=== PATIENT | female | born 1990 | race Caucasian/White ===

== ENCOUNTER 2016-08-17 03:22 | Emergency (ER) | payer OTHER ==
[~2016-08-17] VITALS: Ht 157.5 cm; Wt 59.0 kg
--- NOTE | 2016-08-17 03:45 | ED DYSPNEA/ASTHMA COMPLAINT ---
History of Present Illness General Chief Complaint: Dyspnea (COPD, CHF, Other) Stated Complaint: PER FRIEND,"SHE CANT BREATH" Source: patient, friend Exam Limitations: no limitations Vital Signs & Intake/Output Vital Signs & Intake/Output Vital Signs Date Time Temp Pulse Resp B/P Pulse O2 O2 Flow FiO2 Ox Delivery Rate 08/17 0624 96.8 73 18 119/73 96 Room Air 08/17 0403 100 Room Air 08/17 0358 97.3 75 18 123/79 97 Room Air Allergies Coded Allergies: Penicillins (08/17/16) amoxicillin (08/17/16) clavulanic acid (From AUGMENTIN) (08/17/16) Triage Nurses Notes Reviewed? yes HPI: Patient presents with dyspnea and substernal chest pressure. Patient states that the chest pressure started tonight while laying on the couch. Patient states that it felt like some was sitting on her chest. The symptoms are constant. There is no radiation. SHe rates it as a 6 out of 10. Patient is also been having intermittent stabbing pain to her bilateral flanks. There are no aggravating or mitigating factors. There is no radiation. The pain lasts a few seconds and then goes away. The pain is 10 out of 10. Patient is also been having shortness of breath. Patient states it feels like she just can't catch her breath. The symptoms have been constant for the past week. Patient states he got to the point that she had to quit smoking. Patient denies any cough. Patient states that she has been to an urgent care and the emergency department twice. Patient states feeling that helped was when she was given a short course of steroids but the steroids finished. There are no fevers or chills. There is no orthopnea. Positive dyspnea on exertion. Past History Travel History Traveled to [place] past 21 day No Medical History Any Pertinent Medical History? see below for history Other Medical Hx: Dermatomyositis Surgical History Surgical History: non-contributory Psychosocial History Tobacco Use: Quit <30 days ago ETOH Use: occasional use Illicit Drug Use: denies illicit drug use Family History Hx Contributory? No Review of Systems Review of Systems Constitutional: Reports: no symptoms. EENTM: Reports: no symptoms. Respiratory: Reports: see HPI, short of breath. Cardiovascular: Reports: see HPI, chest pain. GI: Reports: no symptoms. Genitourinary: Reports: no symptoms. Musculoskeletal: Reports: no symptoms. Skin: Reports: no symptoms. Neurological/Psychological: Reports: no symptoms. Hematologic/Endocrine: Reports: no symptoms. Immunologic/Allergic: Reports: no symptoms. All Other Systems: Reviewed and Negative Physical Exam Physical Exam General Appearance: well developed/nourished, alert, awake, anxious, moderate distress Head: atraumatic, normal appearance Eyes: Bilateral: PERRL, EOMI. Ears, Nose, Throat: normal pharynx, normal ENT inspection, hearing grossly normal Neck: normal inspection, supple, full range of motion, NO JVD Respiratory: normal breath sounds, chest non-tender, no respiratory distress, lungs clear Cardiovascular: regular rate/rhythm, normal peripheral pulses Gastrointestinal: normal bowel sounds, soft, non-tender, no organomegaly Extremities: normal inspection, normal capillary refill, normal range of motion, no edema Neurologic/Psych: no motor/sensory deficits, awake, alert, oriented x 3, normal gait, normal mood/affect Skin: intact, normal color, warm/dry Lymphatic: no anterior cervical romy Core Measures ACS in differential dx? 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 340 Active TROPONIN LEVEL 08/17 340 Complete HUMAN BETA HCG SCREEN 08/17 340 Complete COMPREHENSIVE METABOLIC PANEL 08/17 340 Complete CBC WITHOUT DIFFERENTIAL 08/17 340 Complete EKG 08/17 340 Active Current Medications Sig/Chilo Start time Last Medication Dose Stop Time Status Admin Prednisone 60 MG ONCE ONE 08/17 0645 UNVr 08/17 0646 Laboratory Tests 08/17/16 0401: Anion Gap 11, Estimated GFR > 60, BUN/Creatinine Ratio 31.3 H, Glucose 117 H, Calcium 9.9, Total Bilirubin 0.4, AST 18, ALT 15, Alkaline Phosphatase 94, Troponin I < 0.01, Total Protein 7.8, Albumin 4.6, Globulin 3.2, Albumin/ Globulin Ratio 1.4, Total Beta HCG NEGATIVE, CBC w Diff NO MAN DIFF REQ, RBC 4.37, MCV 88.3, MCH 29.5, RDW 14.1, MPV 9.2, Gran % 79.6 H, Lymphocytes % 19.7 L, Monocytes % 0.5 L, Eosinophils % 0.1, Basophils % 0.1, Absolute Granulocytes 9.9 H, Absolute Lymphocytes 2.4, Absolute Monocytes 0.1 L, Absolute Eosinophils 0, Absolute Basophils 0, PUBS MCHC 33.5 Diagnostic Imaging: Viewed by Me: CT Scan. Discussed w/RAD: CT Scan. Radiology Impression: PATIENT: SERJIO GAVIN PRESENT AGE: 25 PATIENT ACCOUNT NO: [id number] : 90 LOCATION: [facility] ORDERING PHYSICIAN: PEDRO SANCHEZ MD SERVICE DATE: 08/17/16 EXAM TYPE: CAT - CTA CHEST-PULMONARY EMBOLISM EXAMINATION: CT ANGIOGRAM OF THE CHEST WITH AND WITHOUT CONTRAST (CT PULMONARY ANGIOGRAM FOR PE) CLINICAL INFORMATION: CHEST PAIN AND SOB COMPARISON: No pertinent prior studies are available for comparison. TECHNIQUE: Prior to contrast administration, noncontrast localization images were obtained. Subsequently, multidetector volumetric imaging was performed from the thoracic inlet to below the diaphragms following the administration of 84 mL Optiray 350 intravenous contrast. No contrast reaction reported Sagittal, coronal, and MIP oblique sagittal reformatted images were obtained on the CT workstation, uploaded to PACS, and reviewed. Total exam dose-length product 219.97 mGy-cm FINDINGS: QUALITY OF STUDY/CONTRAST BOLUS: Satisfactory. PULMONARY ARTERIES: No central or segmental pulmonary emboli. THORACIC AORTA: No aneurysm or dissection. LUNG: There is trace dependent bibasilar atelectasis. The lungs are otherwise clear. PLEURA: No pleural effusion or pneumothorax. MEDIASTINUM: Normal heart size. No pericardial effusion. No hilar or mediastinal lymphadenopathy. No evidence of septal bowing or right heart strain. CHEST WALL/AXILLA: No axillary or internal mammary lymphadenopathy. OSSEOUS STRUCTURES: No acute or suspicious osseous abnormality. UPPER ABDOMEN: Unremarkable. No reflux of contrast into the hepatic veins to suggest elevated right heart pressures. IMPRESSION: No evidence of pulmonary embolus or other acute intrathoracic findings. VTE: negative DICTATED BY: FLORINA MENDOZA MD DATE/TIME DICTATED:08/17/16557 DIRECTOR OF ADMISSIONS:VALORIE DATE/ TIME TRANSCRIBED:08/17/16557 CONFIDENTIAL, DO NOT COPY WITHOUT APPROPRIATE AUTHORIZATION. <Electronically signed in Other Vendor System> SIGNED BY: FLORINA MENDOZA MD 08/17/16 0609 Initial ED EKG: NSR, no ST T wave changes Rhythm Strip: normal sinus rhythm Departure Departure Disposition: HOME OR SELF CARE Condition: Stable Clinical Impression Primary Impression: Dyspnea Referrals: SUSY CORCORAN MD Additional Instructions: FOLLOW UP WITH DR. CORCORAN RETURN IF SYMPTOMS WORSEN OR FOR ANY CONCERNS Departure Forms: Customer Survey General Discharge Information Prescriptions: Current Visit Scripts Prednisone 1 TAB PO DAILY #30 TAB TAKE 4 TABS FOR 3 DAYS THEN TAKE 3 TABS FOR 3 DAYS THEN TAKE 2 TABS FOR 3 DAYS THEN TAKE 1 TAB FOR 3 DAYS Albuterol Sulfate (Proair Hfa) 2 PUF INH Q4-6 PRN PRN DYSPNEA #1 INHAL Critical Care Note Critical Care Note Critical Care Time: non-applicable
[2016-08-17 04:16] LABS: ABSOLUTE BASOPHIL COUNT 0 /CUMM (0.0-0.2); ABSOLUTE EOSINOPHIL COUNT 0 /CUMM (0.0-0.7); ABSOLUTE GRANULOCYTE CT 9.9 /CUMM (1.4-6.5); ABSOLUTE LYMPH COUNT 2.4 /CUMM (1.2-3.4); ABSOLUTE MONOCYTE COUNT 0.1 /CUMM (0.10-0.60); BASOPHIL % 0.1 % (0.0-2.0); EOSINOPHIL % 0.1 % (0-5); GRANULOCYTE % 79.6 % (42.2-75.2); HEMATOCRIT 38.6 % (37-47); MEAN CORPUSCULAR HGB 29.5 PG (27.0-31.0); MEAN CORPUSCULAR HGB CONC 33.5 G/DL (33.0-37.0); MEAN CORPUSCULAR VOLUME 88.3 FL (81.0-99.0); MEAN PLATELET VOLUME 9.2 FL (7.4-10.4); PLATELET COUNT 270 /CUMM (130-400); RBC DISTRIBUTION WIDTH 14.1 % (11.5-14.5); RED BLOOD CELL CT 4.37 /CUMM (4.20-5.40); WHITE BLOOD CELL COUNT 12.4 /CUMM (4.8-10.8)
--- NOTE | 2016-08-17 06:09 | CT SCAN REPORT ---
EXAMINATION: CT ANGIOGRAM OF THE CHEST WITH AND WITHOUT CONTRAST (CT PULMONARY ANGIOGRAM FOR PE) CLINICAL INFORMATION: CHEST PAIN AND SOB COMPARISON: No pertinent prior studies are available for comparison. TECHNIQUE: Prior to contrast administration, noncontrast localization images were obtained. Subsequently, multidetector volumetric imaging was performed from the thoracic inlet to below the diaphragms following the administration of 84 mL Optiray 350 intravenous contrast. No contrast reaction reported Sagittal, coronal, and MIP oblique sagittal reformatted images were obtained on the CT workstation, uploaded to PACS, and reviewed. Total exam dose-length product 219.97 mGy-cm FINDINGS: QUALITY OF STUDY/CONTRAST BOLUS: Satisfactory. PULMONARY ARTERIES: No central or segmental pulmonary emboli. THORACIC AORTA: No aneurysm or dissection. LUNG: There is trace dependent bibasilar atelectasis. The lungs are otherwise clear. PLEURA: No pleural effusion or pneumothorax. MEDIASTINUM: Normal heart size. No pericardial effusion. No hilar or mediastinal lymphadenopathy. No evidence of septal bowing or right heart strain. CHEST WALL/AXILLA: No axillary or internal mammary lymphadenopathy. OSSEOUS STRUCTURES: No acute or suspicious osseous abnormality. UPPER ABDOMEN: Unremarkable. No reflux of contrast into the hepatic veins to suggest elevated right heart pressures. IMPRESSION: No evidence of pulmonary embolus or other acute intrathoracic findings. VTE: negative
[2016-08-17 06:24] VITALS: BP 119/73
[2016-08-17] MEDS ORDERED: PROAIR HFA8.5 GM INH (06:33)
[2016-08-17] MEDS ORDERED: PREDNISONE10 M2 PO (06:33)
== END 2016-08-17 06:42 ==
LOC: ERH 03:22
PROVIDERS: Emergency Medicine
DX: R06.00 Dyspnea, unspecified (principal); R07.89 Other chest pain
CPT/HCPCS: 93005; 93010; 96374; J2405

== ENCOUNTER 2016-10-11 00:54 | Emergency (ER) | payer OTHER ==
[~2016-10-11] VITALS: Ht 162.6 cm; Wt 61.2 kg
[~2016-10-11 00:54] MED LIST: PREDNISONE10 M2 PO; PROAIR HFA8.5 GM INH
--- NOTE | 2016-10-11 00:58 | ED GI/GU/ABDOMINAL COMPLAINT ---
History of Present Illness General Chief Complaint: Abdominal Pain/Flank Pain Stated Complaint: CONSTIPATED, LLQ ABD PAIN Source: patient Exam Limitations: no limitations Vital Signs & Intake/Output Vital Signs & Intake/Output Vital Signs Date Time Temp Pulse Resp B/P Pulse O2 O2 Flow FiO2 Ox Delivery Rate 10/11 0101 99.1 77 20 119/70 98 Room Air Allergies Coded Allergies: Penicillins (08/17/16) amoxicillin (08/17/16) clavulanic acid (From AUGMENTIN) (08/17/16) Reconcile Medications Albuterol Sulfate (Proair Hfa) 90 MCG HFA.AER.AD 2 PUF INH Q4-6 PRN PRN DYSPNEA Peg 3350/Na Sulf,Bicarb,Cl/KCl (Golytely Solution) 236-22.74G SOLN.RECON 1 BOT PO X1 PRN CONSTIPATION Prednisone 10 MG TABLET 1 TAB PO DAILY DYSPNEA TAKE 4 TABS FOR 3 DAYS THEN TAKE 3 TABS FOR 3 DAYS THEN TAKE 2 TABS FOR 3 DAYS THEN TAKE 1 TAB FOR 3 DAYS Triage Nurses Notes Reviewed? yes ? N Is pt currently ? No Onset: Gradual Duration: day(s): Quality/Severity: fullness Location: left lower quadrant Radiation: no radiation Activities at Onset: none Modifying Factors: Worsens With: palpation. Associated Symptoms: CONSTIPATION HPI: 26-year-old woman history of constipation, otherwise well presents with constipation. She states that she has not had a bowel movement in 4 days. She states that she put her finger in her rectum and no longer feels any stool. However, she feels like she has bloating and stool, "higher up in my colon." She has tried enemas and suppositories without significant effect. Past History Travel History Traveled to [place] past 21 day No Medical History Any Pertinent Medical History? see below for history Gastrointestinal: constipation Other Medical Hx: Dermatomyositis Surgical History Surgical History: non-contributory Psychosocial History What is your primary language Beninese Family History Hx Contributory? No Review of Systems Review of Systems Constitutional: Reports: no symptoms. EENTM: Reports: no symptoms. Respiratory: Reports: no symptoms. Cardiovascular: Reports: no symptoms. GI: Reports: no symptoms. Genitourinary: Reports: no symptoms. Musculoskeletal: Reports: no symptoms. Skin: Reports: no symptoms. Neurological/Psychological: Reports: no symptoms. Hematologic/Endocrine: Reports: no symptoms. Immunologic/Allergic: Reports: no symptoms. All Other Systems: Reviewed and Negative Physical Exam Physical Exam General Appearance: well developed/nourished, mild distress Head: atraumatic, normal appearance Eyes: Bilateral: normal appearance. Ears, Nose, Throat, Mouth: hearing grossly normal Respiratory: normal breath sounds, chest non-tender, no respiratory distress, quiet respiration, lungs clear Cardiovascular: regular rate/rhythm Gastrointestinal: normal bowel sounds, soft, mild left lower quadrant fullness. No rebound no guarding. Positive bowel sounds. Back: normal inspection Extremities: normal range of motion Neurologic/Psych: no motor/sensory deficits, awake, alert, oriented x 3 Skin: intact, normal color, warm/dry Core Measures ACS in differential dx? No Severe Sepsis Present: No Septic Shock Present: No Progress Differential Diagnosis: constipation versus other. Plan of Care: Discussed at length. Gave prescription for GoLYTELY. Patient referred to gastroenterology Initial ED EKG: none Departure Departure Disposition: HOME OR SELF CARE Condition: Stable Clinical Impression Primary Impression: Constipation Referrals: UNKNOWN (PCP/Family) Departure Forms: Customer Survey General Discharge Information Prescriptions: Current Visit Scripts Peg 3350/Na Sulf,Bicarb,Cl/KCl (Golytely Solution) 1 BOT PO X1 PRN CONSTIPATION #1 BOT Ref 1
[2016-10-11 01:01] VITALS: BP 119/70
[2016-10-11] MEDS ORDERED: GOLYTELY SOLU4000 ML PO (01:38)
== END 2016-10-11 02:00 ==
LOC: ERH 00:54
DX: K59.00 Constipation, unspecified (principal)